=== PATIENT | female | born 1950 | race Two or more races ===

== ENCOUNTER 2018-02-05 13:13 | Outpatient (CLI) | payer OTHER | END 2018-02-05 13:19 | disposition home or self-care (01) | LOC: MAMO-SONO 13:13 | DX: Z12.31 Encounter for screening mammogram for malignant neoplasm of breast (principal); Z87.898 Personal history of other specified conditions; N60.11 Diffuse cystic mastopathy of right breast ==

== ENCOUNTER 2018-11-15 14:06 | Outpatient (CLI) | payer OTHER | END 2018-11-15 14:30 | disposition home or self-care (01) | LOC: RAD 501 14:06 | DX: M54.5 Low back pain (principal) ==

== ENCOUNTER 2019-03-11 13:27 | Outpatient (CLI) | payer OTHER | END 2019-03-11 13:34 | disposition home or self-care (01) | LOC: MAMO-SONO 13:27 | DX: Z12.31 Encounter for screening mammogram for malignant neoplasm of breast (principal); Z87.898 Personal history of other specified conditions; N60.11 Diffuse cystic mastopathy of right breast; N60.12 Diffuse cystic mastopathy of left breast ==

== ENCOUNTER 2019-05-08 13:18 | Outpatient (CLI) | payer OTHER | END 2019-05-08 13:23 | disposition home or self-care (01) | LOC: NUCLEAR 13:18 | DX: M81.0 Age-related osteoporosis without current pathological fracture (principal) ==

== ENCOUNTER 2020-05-05 10:08 | Outpatient (CLI) | payer OTHER | END 2020-05-05 10:19 | disposition home or self-care (01) | LOC: MAMO-SONO 10:08 | PROVIDERS: ATTEND Internal Medicine Cardiovascular Disease | DX: N63.11 Unspecified lump in the right breast, upper outer quadrant (principal); Z12.31 Encounter for screening mammogram for malignant neoplasm of breast ==

== ENCOUNTER 2020-05-07 10:01 | Outpatient (CLI) | payer OTHER | END 2020-05-07 10:05 | disposition home or self-care (01) | LOC: NUCLEAR 10:01 | PROVIDERS: ATTEND Internal Medicine Cardiovascular Disease | DX: I10 Essential (primary) hypertension (principal) ==

== ENCOUNTER 2021-05-26 12:48 | Outpatient (CLI) | payer OTHER | END 2021-05-26 12:59 | disposition home or self-care (01) | LOC: MAMO-SONO 12:48 | PROVIDERS: ATTEND Internal Medicine Cardiovascular Disease | DX: N64.59 Other signs and symptoms in breast (principal); Z12.31 Encounter for screening mammogram for malignant neoplasm of breast; Z87.898 Personal history of other specified conditions ==

== ENCOUNTER → 2021-07-04 13:07 | Outpatient (CLI) | payer OTHER | END | disposition home or self-care (01) | LOC: NUCLEAR 13:00 | PROVIDERS: ATTEND Internal Medicine Cardiovascular Disease | DX: M81.0 Age-related osteoporosis without current pathological fracture (principal) ==

== ENCOUNTER 2025-01-06 09:49 | Outpatient (CLI) | payer OTHER | END 2025-01-06 09:56 | disposition home or self-care (01) | LOC: RAD 09:49 | PROVIDERS: ATTEND Ophthalmology | DX: Z01.811 Encounter for preprocedural respiratory examination (principal) ==

== ENCOUNTER → 2025-01-06 | Outpatient (CLI) | payer OTHER ==
[2025-01-06 10:52] LABS: HEMATOCRIT 40.1 % (36.0-45.00); HEMOGLOBIN 13.5 g/dL (12.0-15.00); MEAN CELL VOLUME 98.5 fL (80.00-100.00); MEAN CORPUSCULAR HEMOGLOBIN 33.3 pg (27.00-32.0); MEAN CORPUSCULAR HGB CONC 33.8 g/dl (32.0-36.0); PLATELET COUNT 282 K/uL (150-450); RED BLOOD COUNT 4.07 M/uL (4.00-6.00); RED CELL DISTRIBUTION WIDTH 13.5 % (11.5-14.5)
[2025-01-06 11:20] LABS: INR 1.01; PARTIAL THROMBOPLASTIN TIME 23.1 SECONDS (22.0-34.0)
[2025-01-06 12:03] LABS: ALBUMIN 3.5 gm/dL (3.4-5.0); BILIRUBIN TOTAL 0.52 mg/dL (0.3-1.2); CALCIUM 9.1 mg/dL (8.5-10.1); CREATININE SERUM 0.58 mg/dL (0.55-1.02); GFR 101.07; GLOBULINA 3.2 G/DL (2.4-3.5); POTASSIUM 4.59 mEq/L (3.5-5.1); TOTAL PROTEIN 6.7 gm/dL (6.4-8.2)
== END | disposition home or self-care (01) ==
LOC: LAB 10:11
PROVIDERS: ATTEND Ophthalmology
DX: D68.8 Other specified coagulation defects (principal); H25.013 Cortical age-related cataract, bilateral; I10 Essential (primary) hypertension

== ENCOUNTER 2025-06-03 13:53 | Outpatient (CLI) | payer OTHER ==
[2025-06-05 15:08] LABS: CYCLIC CITRULLINE PEPTIDE 5 units (0-19)
== END 2025-06-03 13:55 | disposition home or self-care (01) ==
LOC: LAB 13:53
PROVIDERS: ATTEND Physical Medicine & Rehabilitation
DX: M06.9 Rheumatoid arthritis, unspecified (principal); M06.09 Rheumatoid arthritis without rheumatoid factor, multiple sites

== ENCOUNTER 2025-06-03 14:14 | Outpatient (CLI) | payer OTHER | END 2025-06-03 14:17 | disposition home or self-care (01) | LOC: RAD 14:14 | PROVIDERS: ATTEND Physical Medicine & Rehabilitation | DX: M54.12 Radiculopathy, cervical region (principal) ==

== ENCOUNTER 2025-08-13 12:44 | Outpatient (CLI) | payer OTHER | END 2025-08-13 12:54 | disposition home or self-care (01) | LOC: SONOGRAMA 12:44 | PROVIDERS: ATTEND Physical Medicine & Rehabilitation | DX: M25.511 Pain in right shoulder (principal) ==